=== PATIENT | male | born 1980 | race Caucasian/White ===

== ENCOUNTER 2020-07-05 07:40 | Emergency (ER) | payer SELFPAY ==
[~2020-07-05] VITALS: Ht 160 cm; Wt 72.6 kg
[2020-07-05 07:40] VITALS: BP 130/80
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
--- NOTE | 2020-07-05 07:55 | NUR ---
Pt d/c back to [facility] officer Edilma # [id number] custody with VSS. patient education given.
== END 2020-07-05 07:55 ==
LOC: MED 07:40
DX: F17.210 Nicotine dependence, cigarettes, uncomplicated (principal); Z02.89 Encounter for other administrative examinations; V98.8XXA Other specified transport accidents, initial encounter; Y93.89 Activity, other specified; Y92.89 Other specified places as the place of occurrence of the external cause; Y99.8 Other external cause status
CPT/HCPCS: 99283